=== PATIENT | male | born 1990 | race Caucasian/White ===

== ENCOUNTER 2019-08-21 04:13 | Emergency (ER) | payer OTHER, SELFPAY ==
[2019-08-21 04:24] VITALS: BP 148/108; PULSE 96; RESP 18; TEMP 37.1; O2SAT 100; BMI 43.9
--- NOTE | 2019-08-21 04:27 | DI.RAD.S_ITS ---
PROCEDURE: XR WRIST LT MIN 3V INDICATIONS: pain, trauma TECHNIQUE: 4 views of the wrist were acquired. COMPARISON: None. FINDINGS: Bones: No fractures or dislocations. No suspicious bony lesions. Scaphoid view: Scaphoid is intact Soft tissues: No suspicious soft tissue calcifications. IMPRESSION: No fracture. No osseous lesion. If symptoms and/or clinical suspicion for pathology persists, further assessment with repeat radiographs (7-10 days) or advanced imaging (e.g. CT, MRI or bone scan) may be helpful. Dictated by: Isabell Quinones MD, PhD on 08/21/2019 at 8:59 Approved by: Isabell Quinones MD, PhD on 08/21/2019 at 8:59
--- NOTE | 2019-08-21 04:27 | DI.RAD.S_ITS ---
PROCEDURE: XR HAND LT MIN 3V INDICATIONS: pain, trauma TECHNIQUE: 3 views of the hand(s) acquired. COMPARISON: None. FINDINGS: Bones: No fractures or dislocations. Carpal bones are normally aligned. No suspicious bony lesions. Soft tissues: No suspicious soft tissue calcifications. IMPRESSION: No fracture. No osseous lesion. If symptoms and/or clinical suspicion for pathology persists, further assessment with repeat radiographs (7-10 days) or advanced imaging (e.g. CT, MRI or bone scan) may be helpful. Dictated by: Isabell Quinones MD, PhD on 08/21/2019 at 8:59 Approved by: Isabell Quinones MD, PhD on 08/21/2019 at 9:00
--- NOTE | 2019-08-21 04:28 | ED.UPPEXIN ---
HPI - Extremity Injury (Upper) General Chief Complaint: Extremity Injury, Upper Stated Complaint: hit hand/pain worsening Time Seen by Provider: 08/21/19 04:20 Source: patient Mode of arrival: Ambulatory Limitations: no limitations History of Present Illness HPI narrative: 28-year-old gentleman with a history of psoriasis presents to the emergency department with acute pain to his left hand and wrist. Four days ago he injured the hand and wrist after hitting a kitchen counter with a parentheses closed fist punching type motion). It is hurt initially and then was doing well. He twisted in his sleep and the pain awoke him from sleep with severe enough he almost vomited and is now subsiding a bit but it feels like ?there's something wrong? inside. Related Data Allergies Allergy/AdvReac Type Severity Reaction Status Date / Time Penicillins Allergy Anaphylaxis Verified 08/21/19 04:28 Review of Systems Review of Systems Narrative: Denies ? fever ? cough ? cold ? chills ? chest pain ? dyspnea ? orthopnea ? wheezing ? abdominal pain ? change to bowel or bladder habits ? nausea vomiting ? skin changes ? rashes Patient History Medical History (Updated 08/21/19 @ 05:27 by Sissy Jade MD) Pilonidal cyst (Acute) Social History (Updated 08/21/19 @ 04:30 by Sissy Jade MD) other: Family is visiting for [place] holidays from [place] Smoking Status: Never smoker Smoking Status: Never smoker alcohol intake frequency: 0-2 drinks per day Substance Use Type: does not use Exam Narrative Exam Narrative: General: Alert appropriate in no acute distress Respiratory: Able to speak in full sentences, no obvious respiratory distress Cardiac: Regular rate and rhythm Skin: Multiple psoriatic plaques, warm and dry Neurologic: Grossly intact no obvious asymmetries or abnormalities Psych, appropriate insight and affect, cooperative Left upper extremity is examined there's some tenderness at the base of the 5th metatarsal that's radiating into the ulnar aspect of the wrist. There's no abrasion, contusion, edema or erythema. All fingers are neurovascularly intact Initial Vital Signs Initial Vital Signs: Vital Signs Temperature 98.7 F 08/21/19 04:24 Pulse Rate 96 H 08/21/19 04:24 Respiratory Rate 18 08/21/19 04:24 Blood Pressure 148/108 H 08/21/19 04:24 Pulse Oximetry 100 08/21/19 04:24 Procedures [facility] [place] Procedure Name of Procedure: Wrist splint placement Side (if applicable): left Additional Comments: Indication: Nondisplaced fracture 5th metacarpal bone Ortho glass Splint was placed by me with left hand in a position of comfort Exam post placement reveals appropriate splinting and neurovascularly intact Course Orders Ordered: ED Orders 08/21/19 04:27 XR hand LT min 3V Stat XR wrist LT min 3V Stat Discontinued Medications Ketorolac Tromethamine (Toradol) 30 mg IM NOW ONE Stop: 08/21/19 04:41 Last Admin: 08/21/19 04:44 Dose: 30 mg Documented by: NATIVIDAD Vital Signs Vital signs: Vital Signs - 8 hr 08/21/19 04:24 Temperature 98.7 F Pulse Rate 96 H Respiratory Rate 18 Blood Pressure 148/108 H Pulse Oximetry 100 MDM - Extremity Injury (Upper) Differential Diagnosis Differential diagnosis: Likely sprain and strain of wrist and fracture of wrist Medical Records Attestation: I reviewed the patient's medical records. Imaging Data X-ray hand: Attestation: I personally reviewed and interpreted this imaging study as follows: My Impression: Nondisplaced fracture base 5th metacarpal bone X-ray wrist: Attestation: I personally reviewed and interpreted this imaging study as follows: My Impression: Normal wrist Discharge Plan Departure Patient Disposition: Home Clinical Impression: Fracture of hand Qualifiers: Encounter type: initial encounter Fracture type: closed Laterality: left Qualified Code(s): S62.92XA - Unspecified fracture of left wrist and hand, initial encounter for closed fracture Instructions: DI for Boxer's Fracture Activity Restrictions/Additional Instructions: Thank you for coming in today. I believe you do have what's called a ?boxer's fracture?. There is a very subtle fracture through the bone at the edge of your hand. Hitting something with a closed fist like you explained is the classic way to create this fracture. Please note, I looked at these films in the emergency department but they have not been reviewed by either radiology or an orthopedic surgeon. I have placed your hand in a splint and would prefer you keep this in place until you are able to have this more formally evaluated by an orthopedic surgeon. I suspect that you will need a hand splint/cast for about 6 weeks. The bone itself is not twiste, turned or in any way impacted in a way that might require surgery. Keep your hand elevated if it feels that it is throbbing. Two [id number] ibuprofen and 1 Tylenol together every 6 hours can be a very effective combination for pain control. Safe travels home. I hope you heal quickly
--- NOTE | 2019-08-21 04:31 | PC.NURSE ---
reports [age] age he hit a kitchen counter in an underhand motion with fist closed. It hurt initially but otc nsaids were helping. this mornig he awoke with a severe not right feeling like it wasnt right in there. States it doesnt hurt but feels like you have your shirt on crooked, just not right. Provider at bedside.
[2019-08-21] MEDS: KETOROLAC 60 MG/2 ML VIAL 30 MG IM (04:44)
--- NOTE | 2019-08-21 04:45 | PC.NURSE ---
after manipulation for xray patient requested pain medication. Order received for toradol im
[2019-08-21 05:34] VITALS: BP 164/85; PULSE 90; RESP 16; O2SAT 100
--- NOTE | 2019-08-21 05:34 | PC.NURSE ---
provider placed splint on left forearm to immobilize wrist and hand. + CMS
== END 2019-08-21 05:38 | disposition home or self-care (01) ==
PROVIDERS: Emergency Provider Emergency Medicine
DX: S62.347A Nondisplaced fracture of base of fifth metacarpal bone, left hand, initial encounter for closed fracture (principal); W22.8XXA Striking against or struck by other objects, initial encounter
CPT/HCPCS: 73110; 73130; 96372; 99283; J1885